=== PATIENT | male | born 1990 | race African-American/Black ===

== ENCOUNTER → 2020-12-22 | Emergency (ER) | payer OTHER ==
[2020-12-22 20:07] LABS: #Eosinphils 0.3 10x3/uL (0.0-0.5); #Monocytes 0.5 10x3/uL (0.0-1.1); #Neutrophils 3.2 10x3/uL (1.5-8.4); %Basophils 0.6 % (0.0-2.0); %Eosinophils 4.1 % (0.0-6.0); %Lymphocytes 36.5 % (18.0-47.0); %Monocytes 7.4 % (0.0-10.0); %Neutrophils 51.1 % (40.0-75.0); Hemoglobin 14.9 g/dL (13.5-17.5); Mean Corpuscular HGB CONC 33.1 g/dL (32.0-36.0); Mean Corpuscular Hemoglobin 30.2 pg (27.0-33.0); Mean Corpuscular Volume 91.3 fl (81.2-95.1); Platelet Count 209 10x3/uL (150-450); RBC Distribution Width 13.1 % (11.5-14.5); Red Blood Cell (RBC) Count 4.93 10x6/uL (4.32-5.72); White Blood Cell (WBC) Count 6.3 10x3/uL (3.5-10.5)
[2020-12-22 20:20] LABS: ALT (SGPT) 52 U/L (8-55); AST (SGOT) 83 U/L (5-34); Acetaminophen Less than 6.0 mcg/mL (10.0-30.0); Albumin 4.2 g/dL (3.5-5.0); Alcohol Less than 10 mg/dL (Less than 10); Alkaline Phosphatase 51 U/L (40-110); Anion Gap 14 mmol/L (10-20); BUN (Urea Nitrogen) 13 mg/dL (8.9-20.6); Bilirubin, Total 0.7 mg/dL (0.2-1.2); Calc. Creatinine Clearance 0 mL/min (70-130); Calcium 9.5 mg/dL (7.8-10.44); Carbon Dioxide 25 mmol/L (22-29); Chloride 104 mmol/L (98-107); Globulin 2.8 g/dL (2.4-3.5); Glucose 79 mg/dL (70-105); Potassium 3.7 mmol/L (3.5-5.1); Salicylate Less than 8.0 mg/dL (15.0-30.0); Sodium 139 mmol/L (136-145)
[2020-12-22 20:31] LABS: Amphetamine Not Detected (NotDetected); Barbiturates Screen Not Detected (NotDetected); Benzodiazepine Screen Not Detected (NotDetected); Cocaine Metabolite Screen Not Detected (NotDetected); Methadone Not Detected (NotDetected); Methamphetamine Not Detected (NotDetected); Opiate Screen Not Detected (NotDetected); Oxycodone Screen Not Detected (NotDetected); Phencyclidine (PCP) Not Detected (NotDetected); THC/Cannabinoid Screen Not Detected (NotDetected); Tricyclic Screen Not Detected (NotDetected)
[2020-12-23 09:45] LABS: SARS-CoV-2 NAA Rapid Test Not Detected (NotDetected)
== END ==
LOC: CSHERS 19:04
DX: F20.9 Schizophrenia, unspecified (principal)
CPT/HCPCS: 36415; 80053; 80306; 80307; 84443; 85025; 93005; U0002; U0005

== ENCOUNTER 2021-06-06 13:16 | Emergency (ER) | payer OTHER ==
[2021-06-06 14:16] LABS: Bilirubin Neg (Negative); Blood, Urine Negative (Negative); Clarity Clear (Clear); Glucose, Urine (Dipstick) Normal (Negative); Ketone, Urine Negative (Negative); Leukocyte Negative (Negative); Nitrite Negative (Negative); Protein, Urine (Dipstick) Negative (Neg-Trace); Urobilinogen Normal mg/dL (Less than 2)
[2021-06-06 14:24] LABS: Amphetamine Not Detected (NotDetected); Barbiturates Screen Not Detected (NotDetected); Benzodiazepine Screen Not Detected (NotDetected); Cocaine Metabolite Screen Not Detected (NotDetected); Methadone Not Detected (NotDetected); Methamphetamine Not Detected (NotDetected); Opiate Screen Not Detected (NotDetected); Oxycodone Screen Not Detected (NotDetected); Phencyclidine (PCP) Not Detected (NotDetected); THC/Cannabinoid Screen Not Detected (NotDetected); Tricyclic Screen Not Detected (NotDetected)
[2021-06-06 15:08] LABS: #Basophils 0.1 10x3/uL (0.0-0.2); #Eosinphils 0.1 10x3/uL (0.0-0.5); #Monocytes 0.6 10x3/uL (0.0-1.1); #Neutrophils 3.5 10x3/uL (1.5-8.4); %Basophils 0.8 % (0.0-2.0); %Eosinophils 1.8 % (0.0-6.0); %Lymphocytes 32.3 % (18.0-47.0); %Neutrophils 55.9 % (40.0-75.0); Hemoglobin 16.2 g/dL (13.5-17.5); Mean Corpuscular HGB CONC 33.5 g/dL (32.0-36.0); Mean Corpuscular Hemoglobin 29.6 pg (27.0-33.0); Mean Corpuscular Volume 88.3 fl (81.2-95.1); Mean Platelet Volume 13.1 fl (7.4-10.4); Platelet Count 188 10x3/uL (150-450); RBC Distribution Width 12.1 % (11.5-14.5); Red Blood Cell (RBC) Count 5.47 10x6/uL (4.32-5.72); White Blood Cell (WBC) Count 6.2 10x3/uL (3.5-10.5)
[2021-06-06] MEDS ORDERED: Ziprasidone 20 MG CAP ONE (15:12)
[2021-06-06 15:18] LABS: ALT (SGPT) 12 U/L (8-55); AST (SGOT) 19 U/L (5-34); Albumin 4.6 g/dL (3.5-5.0); Alcohol Less than 10 mg/dL (Less than 10); Alkaline Phosphatase 57 U/L (40-110); Anion Gap 13 mmol/L (10-20); BUN (Urea Nitrogen) 8 mg/dL (8.9-20.6); Bilirubin, Total 0.6 mg/dL (0.2-1.2); CK (CPK) 199 U/L (30-200); Calc. Creatinine Clearance 0 mL/min (70-130); Calcium 9.6 mg/dL (7.8-10.44); Carbon Dioxide 26 mmol/L (22-29); Chloride 104 mmol/L (98-107); Globulin 3.2 g/dL (2.4-3.5); Glucose 75 mg/dL (70-105); Potassium 3.5 mmol/L (3.5-5.1); Protein, Total 7.8 g/dL (6.0-8.3); Sodium 139 mmol/L (136-145)
[2021-06-06] MEDS ORDERED: hydrOXYzine 25 MG TAB ONE (17:51)
[2021-06-06 19:46] LABS: SARS-CoV-2 NAA Rapid Test Not Detected (NotDetected)
== END 2021-06-07 07:21 | disposition short-term general hospital (02) ==
LOC: CSHERS 13:16
DX: F29 Unspecified psychosis not due to a substance or known physiological condition (principal); Z20.822 Contact with and (suspected) exposure to COVID-19
CPT/HCPCS: 80053; 80306; 80307; 81003; 82550; 84443; 85025; 93005; U0002

== ENCOUNTER 2023-01-22 19:10 | Emergency (ER) | payer OTHER ==
[2023-01-22] MEDS ORDERED: Lorazepam 2 MG/ML VIAL ONE (20:20)
== END 2023-01-22 21:33 | disposition home or self-care (01) ==
LOC: CSHERS 19:10
DX: G24.01 Drug induced subacute dyskinesia (principal)
CPT/HCPCS: 96372; 99284; J2060

== ENCOUNTER 2023-06-15 07:23 | Emergency (ER) | payer OTHER | END 2023-06-15 07:55 | disposition left against medical advice (07) | LOC: CSHERS 07:23 | DX: F23 Brief psychotic disorder (principal) | CPT/HCPCS: 99284 ==

== ENCOUNTER 2023-06-20 21:41 | Emergency (ER) | payer OTHER ==
[2023-06-20 23:15] LABS: #Basophils 0.1 10x3/uL (0.0-0.2); #Eosinphils 0.2 10x3/uL (0.0-0.5); #Monocytes 0.5 10x3/uL (0.0-1.1); #Neutrophils 3.6 10x3/uL (1.5-8.4); %Basophils 0.8 % (0.0-2.0); %Eosinophils 2.5 % (0.0-6.0); %Lymphocytes 33.1 % (18.0-47.0); %Monocytes 7.9 % (0.0-10.0); %Neutrophils 55.5 % (40.0-75.0); Hematocrit 39.3 % (38.8-50.0); Hemoglobin 13.2 g/dL (13.5-17.5); Mean Corpuscular HGB CONC 33.6 g/dL (32.0-36.0); Mean Corpuscular Hemoglobin 30.1 pg (27.0-33.0); Mean Corpuscular Volume 89.5 fl (81.2-95.1); Mean Platelet Volume 12.2 fl (7.4-10.4); Platelet Count 189 10x3/uL (150-450); RBC Distribution Width 12.7 % (11.5-14.5); Red Blood Cell (RBC) Count 4.39 10x6/uL (4.32-5.72); White Blood Cell (WBC) Count 6.4 10x3/uL (3.5-10.5)
[2023-06-20 23:31] LABS: ALT (SGPT) 50 U/L (8-55); AST (SGOT) 127 U/L (5-34); Albumin 3.8 g/dL (3.5-5.0); Alkaline Phosphatase 42 U/L (40-110); Anion Gap 12 mmol/L (10-20); BUN (Urea Nitrogen) 9 mg/dL (8.9-20.6); Bilirubin, Total 0.4 mg/dL (0.2-1.2); Calc. Creatinine Clearance 0 mL/min (70-130); Calcium 8.7 mg/dL (7.8-10.44); Carbon Dioxide 23 mmol/L (22-29); Chloride 110 mmol/L (98-107); Estimated GFR 119; Globulin 2.6 g/dL (2.4-3.5); Glucose 76 mg/dL (70-105); Magnesium 1.9 mg/dL (1.6-2.6); Potassium 3.9 mmol/L (3.5-5.1); Protein, Total 6.4 g/dL (6.0-8.3); Sodium 141 mmol/L (136-145)
[2023-06-20 23:41] LABS: CK (CPK) 4301 U/L (30-200)
[2023-06-21] MEDS ORDERED: Melatonin 3 MG TAB PO SCH (04:45)
[2023-06-21] MEDS ORDERED: Lorazepam 2 MG/ML VIAL ONE (06:34)
== END 2023-06-21 08:41 ==
LOC: CSHERS 21:41
DX: M62.82 Rhabdomyolysis (principal); F23 Brief psychotic disorder
CPT/HCPCS: 70450; 83735; 96361; 96374; J2060

== ENCOUNTER → 2023-12-10 | Emergency (ER) | payer OTHER | LOC: EEVIPCON 12:36 → CSHERS 12:36 | DX: F20.9 Schizophrenia, unspecified (principal); R45.851 Suicidal ideations; F17.210 Nicotine dependence, cigarettes, uncomplicated | CPT/HCPCS: 36415; 71045; 80053; 80306; 80307; 81001; 82550; 84132; 84443; 85025; 87389; 93005; 96372; J3486 ==

== ENCOUNTER 2024-01-10 08:59 | Emergency (ER) | payer OTHER | END 2024-01-10 11:50 | LOC: CSHERS 08:59 → EEVIPCON 08:59 → CSHERS 11:50 | DX: F20.0 Paranoid schizophrenia (principal); F17.210 Nicotine dependence, cigarettes, uncomplicated | CPT/HCPCS: 99285 ==